=== PATIENT | female | born 1985 | race Caucasian/White ===

== ENCOUNTER 2018-03-20 18:36 | Emergency (ER) | payer OTHER ==
[2018-03-20 19:16] LABS: APPEARANCE,URINE CLOUDY; BILIRUBIN,URINE NEGATIVE (NEGATIVE); COLOR,URINE YELLOW; GLUCOSE, URINE NEGATIVE (NEGATIVE); KETONES,URINE NEGATIVE (NEGATIVE); LEUKOCYTE ESTERASE,URINE LARGE (NEGATIVE); NITRITE,URINE NEGATIVE (NEGATIVE); PROTEIN,URINE 30 mg/dL (NEGATIVE); URINE SPECIFIC GRAVITY 1.017; UROBILINOGEN,URINE NEGATIVE mg/dL (<2.0)
[2018-03-20] MEDS ORDERED: CEPHALEXIN 500 MG CAPSULE PO ONE (20:04)
--- NOTE | 2018-03-20 20:05 | ER Document Report ---
ED General - General Chief Complaint: Urinary Problem Stated Complaint: BURNING WITH URINATION Time Seen by Provider: 03/20/18 20:03 Notes: Patient is a 32-year-old female without past medical history who presents with 2 days of dysuria and suprapubic abdominal discomfort. She describes that when she urinates it feels like she is peeing glass. Nothing seems to improve or worsen her symptoms. She states this feels very similar to when she had urinary tract infections in the past. She denies any associated flank pain, fever, nausea, vomiting, or abdominal pain to any other location other than just above her pubic symphysis. She has not seen her primary care doctor regarding today's concerns. - Related Data Allergies/Adverse Reactions: No Known Allergies Allergy (Unverified 03/20/18 20:01) Past Medical History - General Information source: Patient - Social History Smoking Status: Never Smoker Frequency of alcohol use: Social Drug Abuse: None Lives with: Spouse/Significant other Family History: Reviewed & Not Pertinent Patient has suicidal ideation: No Patient has homicidal ideation: No Renal/ Medical History: Denies: Hx Peritoneal Dialysis Review of Systems - Review of Systems Notes: Constitutional: Negative for fever. HENT: Negative for sore throat. Eyes: Negative for visual changes. Cardiovascular: Negative for chest pain. Respiratory: Negative for shortness of breath. Gastrointestinal: Positive for suprapubic abdominal pain Genitourinary: Positive for dysuria. Musculoskeletal: Negative for back pain. Skin: Negative for rash. Neurological: Negative for headaches, weakness or numbness. 10 point ROS negative except as marked above and in HPI. Physical Exam - Vital signs Vitals: Temp Pulse Resp BP Pulse Ox 97.7 F 93 20 131/76 H 98 03/20/18 18:50 03/20/18 18:50 03/20/18 18:50 03/20/18 18:50 03/20/18 18:50 Interpretation: Normal Notes: PHYSICAL EXAMINATION: GENERAL: Well-appearing, well-nourished and in no acute distress. HEAD: Atraumatic, normocephalic. EYES: Pupils equal round and reactive to light, extraocular movements intact, sclera anicteric, conjunctiva are normal. ENT: nares patent, oropharynx clear without exudates. Moist mucous membranes. NECK: Normal range of motion, supple without lymphadenopathy LUNGS: Breath sounds clear to auscultation bilaterally and equal. No wheezes rales or rhonchi. HEART: Regular rate and rhythm without murmurs ABDOMEN: Soft, nontender, normoactive bowel sounds. No guarding, no rebound. No masses appreciated. EXTREMITIES: Normal range of motion, no pitting or edema. No cyanosis. NEUROLOGICAL: No focal neurological deficits. Moves all extremities spontaneously and on command. PSYCH: Normal mood, normal affect. SKIN: Warm, Dry, normal turgor, no rashes or lesions noted. Course - Re-evaluation Re-evalutation: 03/20/18 20:05 Patient presents with symptoms consistent with an acute cystitis. Vitals wnl. No history of fever, flank pain, or constitution symptoms to suggest ascending infection at this time. Patient is well in appearance, tolerating oral intake without difficulty. No focal abdominal tenderness to suggest acute appendicitis , biliary pathology, acute pancreatitis, tubo-ovarian abscesses, or pelvic inflammatory disease. Patient will be started on antibiotics at this time. A culture has been sent. They will be discharged with return precautions and follow-up recommendations. - Vital Signs Vital signs: Temp Pulse Resp BP Pulse Ox 98.0 F 77 16 137/74 H 99 03/20/18 20:32 03/20/18 20:32 03/20/18 20:32 03/20/18 20:32 03/20/18 20:32 - Laboratory Laboratory results interpreted by me: 03/20/18 18:47 Urine Protein 30 H Urine Blood MODERATE H Ur Leukocyte Esterase LARGE H Discharge - Discharge Clinical Impression: Urinary tract infection Qualifiers: Urinary tract infection type: acute cystitis Hematuria presence: with hematuria Qualified Code(s): N30.01 - Acute cystitis with hematuria Condition: Good Disposition: HOME, SELF-CARE Additional Instructions: Your urine shows findings consistent with a urinary tract infection. Please take all the antibiotics as directed even if your symptoms have improved. Please follow-up with your primary care physician as needed. Return to emergency room if you develop fever >101F, persistent vomiting, become lethargic , have severe pain in your sides, or any other symptoms that are concerning to you. Prescriptions: Cephalexin Monohydrate [Keflex 500 mg Capsule] 500 mg PO Q6H 5 Days capsule
[2018-03-20 20:33] VITALS: BP 137/74
== END 2018-03-20 20:36 | disposition home or self-care (01) ==
LOC: ER 18:36
DX: N30.01 Acute cystitis with hematuria (principal)
CPT/HCPCS: 36415; 81001; 87086; 87088; 87186; 99283